=== PATIENT | male | born 1965 | race Caucasian/White ===

== ENCOUNTER 2016-07-15 10:22 | Emergency (ER) | payer OTHER ==
[~2016-07-15] VITALS: Ht 177.8 cm; Wt 85.0 kg
[2016-07-15 10:24] VITALS: BP 111/73; PULSE 122; RESP 20; TEMP 98.7; O2SAT 97
[2016-07-15 10:50] VITALS: BP 113/81; PULSE 110; RESP 16; O2SAT 95
[2016-07-15] MEDS ORDERED: ADDE30XR PO (10:50)
[2016-07-15] MEDS ORDERED: ESZO3TAB4 PO (10:50)
--- NOTE | 2016-07-15 10:59 | PD ---
HPI Chief Complaint: Allergic/Adverse Reaction Time Seen by Provider: 10:44 Travel History International Travel<30 days: No Contact w/Intl Traveler<30days: No Traveled to known affect area: No History of Present Illness HPI The 50-year-old man who presents emergent from complaining of pruritic rash. Symptoms started 2 days ago. He develop widespread hives. States overall he is felt poorly as well. He feels tightening in his arms and legs. He feels like his lip started getting swollen today. His never had anything similar. No history of atopy in the past. No new exposures. He has had some nausea and vomiting as well. No other complaints. History Past Medical History Medical History: Denies Significant Hx Influenza Vaccination: No Social History Alcohol Use: Yes (OCCASIONALLY) Tobacco Use: Yes (2-3 CIGS/DAY) Allergies-Medications (Allergen,Severity, Reaction): Coded Allergies: No Known Allergies (Unverified , 07/15/16) Reported Meds & Prescriptions Reported Meds & Active Scripts Active Reported Adderall Xr 24 HR (Amphetamine/Dextroamphetamine) 30 Mg Cap 30 Mg PO DAILY Once daily in the morning. Lunesta (Eszopiclone) 3 Mg Tab 3 Mg PO HS PRN Review of Systems Except as stated in HPI: all other systems reviewed are Neg Physical Exam Narrative GENERAL: Well-appearing 50-year-old man, no acute distress. SKIN: Widespread urticaria. Raised hives throughout the trunk and extremities. Some pruritus. No appreciable edema or swelling other he states his extremities feel swollen. No rash inside the mouth. HEAD: Atraumatic. Normocephalic. CARDIOVASCULAR: Regular rate and rhythm. No murmur appreciated. RESPIRATORY: No accessory muscle use. Clear to auscultation. Breath sounds equal bilaterally. GASTROINTESTINAL: Abdomen soft, non-tender, nondistended. Hepatic and splenic margins not palpable. MUSCULOSKELETAL: No obvious deformities. No edema. NEUROLOGICAL: Awake and alert. No obvious cranial nerve deficits. Motor grossly within normal limits. Normal speech. Data Data Last Documented VS Vital Signs Date Time Temp Pulse Resp B/P Pulse Ox O2 Delivery O2 Flow Rate FiO2 07/15/16 10:50 110 16 113/81 95 Room Air 07/15/16 10:24 98.7 Orders Complete Blood Count With Diff (07/15/16 10:55) Comprehensive Metabolic Panel (07/15/16 10:55) Creatine Kinase (Cpk) (07/15/16 10:55) Iv Access Insert/Monitor (07/15/16 10:55) Sodium Chlor 0.9% 1000 Ml Inj (Ns 1000 M (07/15/16 11:00) Sodium Chlor 0.9% 1000 Ml Inj (Ns 1000 M (07/15/16 11:00) Methylprednisolone So Succ Inj (Solumedr (07/15/16 11:00) Diphenhydramine Inj (Benadryl Inj) (07/15/16 11:00) Labs Laboratory Tests Test 07/15/16 10:57 White Blood Count 7.3 TH/MM3 Red Blood Count 4.92 MIL/MM3 Hemoglobin 16.1 GM/DL Hematocrit 46.4 % Mean Corpuscular Volume 94.2 FL Mean Corpuscular Hemoglobin 32.6 PG Mean Corpuscular Hemoglobin 34.6 % Concent Red Cell Distribution Width 13.7 % Platelet Count 231 TH/MM3 Mean Platelet Volume 7.5 FL Neutrophils (%) (Auto) 72.3 % Lymphocytes (%) (Auto) 22.1 % Monocytes (%) (Auto) 4.4 % Eosinophils (%) (Auto) 0.6 % Basophils (%) (Auto) 0.6 % Neutrophils # (Auto) 5.3 TH/MM3 Lymphocytes # (Auto) 1.6 TH/MM3 Monocytes # (Auto) 0.3 TH/MM3 Eosinophils # (Auto) 0.0 TH/MM3 Basophils # (Auto) 0.0 TH/MM3 CBC Comment DIFF FINAL Differential Comment Sodium Level 134 MEQ/L Potassium Level 4.2 MEQ/L Chloride Level 98 MEQ/L Carbon Dioxide Level 28.6 MEQ/L Anion Gap 7 MEQ/L Blood Urea Nitrogen 21 MG/DL Creatinine 1.34 MG/DL Estimat Glomerular Filtration 57 ML/MIN Rate Random Glucose 117 MG/DL Calcium Level 8.5 MG/DL Total Bilirubin 0.9 MG/DL Aspartate Amino Transf 21 U/L (AST/SGOT) Alanine Aminotransferase 26 U/L (ALT/SGPT) Alkaline Phosphatase 57 U/L Total Creatine Kinase 47 U/L Total Protein 7.2 GM/DL Albumin 3.2 GM/DL MDM Medical Decision Making Medical Screen Exam Complete: Yes Emergency Medical Condition: Yes Interpretation(s) LABS: CBC is unremarkable. CMP remarkable for mildly elevated BUN and creatinine. Total CK is normal. Differential Diagnosis Urticaria, allergic reaction, vasculitis, infection, other Narrative Course Medical decision making INITIAL cause a 50-year-old man who presents to the emergency department complaining of some generalized illness with widespread urticaria and hives. We 'll give fluids and steroids, antihistamines, we'll check basic labs was given the multiple associated complaints. Diagnosis Primary Impression: Urticaria Additional Instructions: Take steroids as prescribed. Take loratadine as prescribed. Follow-up with your primary doctor in the next 2-4 days. Return to emergency department for any new or worsening symptoms. Med/Other Pt SpecificInfo: Prescription(s) given Scripts Loratadine 10 Mg Tab10 Mg PO DAILY 7 Days Ref 0 Prov:Niko Rosa MD 07/15/16 Prednisone (Deltasone)20 Mg Tab40 Mg PO DAILY 3 Days Prov:Niko Rosa MD 07/15/16 Disposition: 01 DISCHARGE HOME Condition: Stable Niko Rosa MD Jul 15, 2016 10:59
[2016-07-15] MEDS ORDERED: methylPREDNISolone SOD SUCC 125 MG/2 ML VIAL IV PUSH ONE (11:00)
[2016-07-15] MEDS ORDERED: SODIUM CHLOR 0.9% 1000 ML INJ 1,000 ML IV ONE ×2 (11:00)
[2016-07-15] MEDS ORDERED: diphenhydrAMINE HCL 50 MG/ML VIAL IV PUSH ONE (11:00)
[2016-07-15 11:07] LABS: AUTOMATED NEUTROPHIL # 5.3 TH/MM3 (1.8-7.7); BASOPHIL % 0.6 % (0.0-2.0); EOSINOPHIL % 0.6 % (0.0-4.0); HEMATOCRIT 46.4 % (39.0-51.0); HEMO FLAGS DIFF FINAL; LYMPH % 22.1 % (9.0-44.0); LYMPHOCYTE # 1.6 TH/MM3 (1.0-4.8); MEAN CELL VOLUME 94.2 FL (80.0-100.0); MEAN CORPUSCULAR HEMOGLOBIN 32.6 PG (27.0-34.0); MEAN CORPUSCULAR HGB CONC 34.6 % (32.0-36.0); MONO % 4.4 % (0.0-8.0); NEUT % 72.3 % (16.0-70.0); PLATELET COUNT 231 TH/MM3 (150-450); RED BLOOD COUNT 4.92 MIL/MM3 (4.50-5.90); RED CELL DISTRIBUTION WIDTH 13.7 % (11.6-17.2); WHITE BLOOD COUNT 7.3 TH/MM3 (4.0-11.0)
[2016-07-15 11:34] LABS: ANION GAP 7 MEQ/L (5-15); AST (GOT) 21 U/L (15-37); BICARBONATE 28.6 MEQ/L (21.0-32.0); BLOOD UREA NITROGEN 21 MG/DL (7-18); CHLORIDE 98 MEQ/L (98-107); GLOMERULAR FILTRATION RATE 57 ML/MIN (>89); POTASSIUM 4.2 MEQ/L (3.5-5.1); SODIUM (NA) 134 MEQ/L (136-145)
[2016-07-15 11:37] LABS: ALKALINE PHOSPHATASE 57 U/L (45-117); ALT (GPT) 26 U/L (12-78); TOTAL BILIRUBIN ADULT 0.9 MG/DL (0.2-1.0)
[2016-07-15 11:41] LABS: CREATINE KINASE 47 U/L (39-308)
[2016-07-15] MEDS ORDERED: LORA10TA PO (11:46)
[2016-07-15] MEDS ORDERED: PRED-503 PO (11:46)
[2016-07-15 11:56] VITALS: BP 116/75; PULSE 110; RESP 16; O2SAT 95
== END 2016-07-15 12:47 | disposition home or self-care (01) ==
LOC: NEPC 10:22
DX: L50.9 Urticaria, unspecified (principal); Z72.0 Tobacco use
CPT/HCPCS: 80053; 82550; 85025; 96374; 96375; 99283; J1200; J2930; J7030

== ENCOUNTER 2016-10-10 10:27 | Observation (INO) | payer OTHER ==
[~2016-10-10] VITALS: Ht 177.8 cm; Wt 87.0 kg
[~2016-10-10 10:27] MED LIST: ADDE30XR PO; ESZO3TAB4 PO; LORA10TA PO; PRED-503 PO
[2016-10-10 10:29] VITALS: BP 124/81; PULSE 73; RESP 14; TEMP 98.1; O2SAT 97
[2016-10-10] MEDS ORDERED: LORA-392 PO (10:49)
--- NOTE | 2016-10-10 10:54 | PD ---
HPI Chief Complaint: Chest Pain Time Seen by Provider: 10:49 Travel History International Travel<30 days: No Contact w/Intl Traveler<30days: No Traveled to known affect area: No History of Present Illness HPI Patient is a 50-year-old male presenting to him or chart for evaluation of right upper chest pain. Patient states the pain woke him up approximate 5 AM this morning, he reports being short of breath due to the chest pain, he states the pain radiates to his neck and underneath his right arm. Patient rates his pain a 7 out of 10 and describes a sore and aching. He denies any nausea, vomiting, headache, abdominal pain. Patient reports that it was hard to take a deep breath this morning so he used his roommate's albuterol inhaler approximately 20 minutes prior to arrival. Patient is also taken four 325 mg aspirins this morning. Patient denies any cardiac history, he reports history of anxiety, ADD, insomnia. Patient admits to marijuana use, tobacco use and daily alcohol use. PFS Past Medical History ADD: Yes Anxiety: Yes Insomnia: Yes Past Surgical History Genitourinary Surgery: Yes Other Surgery: Yes (knee and right shoulder) Social History Alcohol Use: Yes (OCCASIONALLY) Tobacco Use: Yes (2-3 CIGS/DAY) Substance Use: Yes (marijuana) Allergies-Medications (Allergen,Severity, Reaction): Coded Allergies: No Known Allergies (Unverified , 10/10/16) Reported Meds & Prescriptions Reported Meds & Active Scripts Active Reported Ativan (Lorazepam) 0.5 Mg Tab 0.5 Mg PO DAILY PRN Adderall Xr 24 HR (Amphetamine/Dextroamphetamine) 30 Mg Cap 30 Mg PO DAILY Once daily in the morning. Review of Systems Except as stated in HPI: all other systems reviewed are Neg General / Constitutional: No: Fever Eyes: No: Blurred Vision HENT: No: Headaches, Lightheadedness Cardiovascular: Positive: Chest Pain or Discomfort (right upper chest), No: Diaphoresis Respiratory: Positive: Shortness of Breath, No: Cough, Wheezing Gastrointestinal: No: Nausea, Vomiting, Abdominal Pain Musculoskeletal: Positive: Myalgias (right shoulder) Neurologic: No: Dizziness, Focal Abnormalities Physical Exam Narrative GENERAL: Well-developed, well-nourished, alert male. Appears uncomfortable, no acute distress. SKIN: Focused skin assessment warm/dry. HEAD: Atraumatic. Normocephalic. EYES: Pupils equal and round. No scleral icterus. No injection or drainage. ENT: No nasal bleeding or discharge. Mucous membranes pink and moist. NECK: Trachea midline. No JVD. CARDIOVASCULAR: Regular rate and rhythm. No murmur appreciated. RESPIRATORY: No accessory muscle use. Clear to auscultation. Breath sounds equal bilaterally. GASTROINTESTINAL: Abdomen soft, non-tender, nondistended. Hepatic and splenic margins not palpable. MUSCULOSKELETAL: No obvious deformities. No clubbing. No cyanosis. No edema. Pain is not reproducible on palpation to chest wall. NEUROLOGICAL: Awake and alert. No obvious cranial nerve deficits. Motor grossly within normal limits. Normal speech. PSYCHIATRIC: Appropriate mood and affect; insight and judgment normal. Data Data Last Documented VS Vital Signs Date Time Temp Pulse Resp B/P Pulse Ox O2 Delivery O2 Flow Rate FiO2 10/10/16 10:51 95 Room Air 10/10/16 10:51 2 10/10/16 10:29 98.1 73 14 124/81 Orders Electrocardiogram (10/10/16 10:47) Ckmb (Isoenzyme) Profile (10/10/16 10:47) Complete Blood Count With Diff (10/10/16 10:47) Comprehensive Metabolic Panel (10/10/16 10:47) Magnesium (Mg) (10/10/16 10:47) Prothrombin Time / Inr (Pt) (10/10/16 10:47) Act Partial Throm Time (Ptt) (10/10/16 10:47) Troponin I (10/10/16 10:47) Chest, Single Ap (10/10/16 10:47) Ecg Monitoring (10/10/16 10:47) Bilateral Bp Monitoring (10/10/16 10:47) Iv Access Insert/Monitor (10/10/16 10:47) Oximetry (10/10/16 10:47) Oxygen Administration (10/10/16 10:47) Sodium Chloride 0.9% Flush (Ns Flush) (10/10/16 11:00) Nitroglycerin Sl (Nitrostat Sl) (10/10/16 11:00) Drug Screen, Random Urine (10/10/16 10:47) CKMB (10/10/16 11:00) CKMB% (10/10/16 11:00) Admit Order (Ed Use Only) (10/10/16 12:56) Labs Laboratory Tests Test 10/10/16 10/10/16 11:00 12:14 White Blood Count 10.3 TH/MM3 Red Blood Count 4.51 MIL/MM3 Hemoglobin 14.6 GM/DL Hematocrit 43.7 % Mean Corpuscular Volume 96.9 FL Mean Corpuscular Hemoglobin 32.3 PG Mean Corpuscular Hemoglobin 33.3 % Concent Red Cell Distribution Width 13.8 % Platelet Count 292 TH/MM3 Mean Platelet Volume 7.7 FL Neutrophils (%) (Auto) 62.0 % Lymphocytes (%) (Auto) 27.8 % Monocytes (%) (Auto) 6.5 % Eosinophils (%) (Auto) 2.8 % Basophils (%) (Auto) 0.9 % Neutrophils # (Auto) 6.4 TH/MM3 Lymphocytes # (Auto) 2.9 TH/MM3 Monocytes # (Auto) 0.7 TH/MM3 Eosinophils # (Auto) 0.3 TH/MM3 Basophils # (Auto) 0.1 TH/MM3 CBC Comment DIFF FINAL Differential Comment Prothrombin Time 9.5 SEC Prothromb Time International 0.9 RATIO Ratio Activated Partial 26.8 SEC Thromboplast Time Sodium Level 138 MEQ/L Potassium Level 4.7 MEQ/L Chloride Level 103 MEQ/L Carbon Dioxide Level 26.2 MEQ/L Anion Gap 9 MEQ/L Blood Urea Nitrogen 15 MG/DL Creatinine 0.96 MG/DL Estimat Glomerular Filtration 83 ML/MIN Rate Random Glucose 104 MG/DL Calcium Level 9.2 MG/DL Magnesium Level 2.2 MG/DL Total Bilirubin 0.2 MG/DL Aspartate Amino Transf 35 U/L (AST/SGOT) Alanine Aminotransferase 37 U/L (ALT/SGPT) Alkaline Phosphatase 83 U/L Total Creatine Kinase 134 U/L Creatine Kinase MB LESS THAN 0.5 NG/ML Troponin I LESS THAN 0.02 NG/ML Total Protein 7.2 GM/DL Albumin 3.7 GM/DL Urine Opiates Screen NEG Urine Barbiturates Screen NEG Urine Amphetamines Screen NEG Urine Benzodiazepines Screen NEG Urine Cocaine Screen NEG Urine Cannabinoids Screen POS MDM Medical Decision Making Medical Screen Exam Complete: Yes Emergency Medical Condition: Yes Interpretation(s) Vital Signs Date Time Temp Pulse Resp B/P Pulse Ox O2 Delivery O2 Flow Rate FiO2 10/10/16 10:29 98.1 73 14 124/81 97 Differential Diagnosis Chest wall pain versus AMI versus pleurisy versus unstable angina versus anxiety versus musculoskeletal strain versus other Narrative Course Patient is a 50-year-old male presenting to the emergency room for evaluation of chest pain that started at approximately 5 AM this morning waking him up from sleep. Patient's vital signs are stable, EKG shows sinus rhythm, reviewed by my attending physician. IV access initiated, patient placed on telemetry monitoring and continuous pulse oximetry. Chest x-ray, labs ordered and pending. Nitroglycerin glycerin sublingual 2 ordered. Patient was observed sleeping, when aroused he stated that he continued to have the right chest pain. Labs reviewed and are unremarkable, urine tox screen is positive for marijuana Patient will be placed in chest pain center, he is agreeable to stay. Diagnosis Primary Impression: Chest pain Qualified Code: R07.9 - Chest pain, unspecified type Admitting Information Admitting Physician Requests: Observation Condition: Stable Akiko Milan NEIGHBORHOOD COORDINATOR Oct 10, 2016 10:54
[2016-10-10] MEDS ORDERED: SODIUM CHLORIDE 0.9% FLUSH 10 ML FLUSH IVF PRN (11:00)
[2016-10-10] MEDS: NITROGLYCERIN 0.4 MG SL 25 TABS/BTL SL SCH ×2 (11:05→11:17)
--- NOTE | 2016-10-10 11:08 | RADRPT ---
EXAM DATE/TIME: 10/10/2016 10:48 [facility] COMPARISON: No previous studies available for comparison. INDICATIONS : Chest pain. Short of breath MEDICAL HISTORY : None. SURGICAL HISTORY : None. ENCOUNTER: Initial ACUITY: 1 day PAIN SCORE: 8/10 LOCATION: Right chest FINDINGS: A single view of the chest demonstrates the lungs to be symmetrically aerated without evidence of mas s, infiltrate or effusion. The cardiomediastinal contours are unremarkable. Osseous structures are intact. CONCLUSION: 1. No acute cardiopulmonary disease. Zeus Mirza MD on October 10, 2016 at 11:06 Board Certified Radiologist. This report was verified electronically.
[2016-10-10 11:40] LABS: AUTOMATED NEUTROPHIL # 6.4 TH/MM3 (1.8-7.7); BASOPHIL # 0.1 TH/MM3 (0-0.2); BASOPHIL % 0.9 % (0.0-2.0); EOSINOPHIL # 0.3 TH/MM3 (0-0.4); EOSINOPHIL % 2.8 % (0.0-4.0); HEMATOCRIT 43.7 % (39.0-51.0); HEMO FLAGS DIFF FINAL; LYMPH % 27.8 % (9.0-44.0); LYMPHOCYTE # 2.9 TH/MM3 (1.0-4.8); MEAN CELL VOLUME 96.9 FL (80.0-100.0); MEAN CORPUSCULAR HEMOGLOBIN 32.3 PG (27.0-34.0); MEAN CORPUSCULAR HGB CONC 33.3 % (32.0-36.0); MONO % 6.5 % (0.0-8.0); PLATELET COUNT 292 TH/MM3 (150-450); RED BLOOD COUNT 4.51 MIL/MM3 (4.50-5.90); RED CELL DISTRIBUTION WIDTH 13.8 % (11.6-17.2); WHITE BLOOD COUNT 10.3 TH/MM3 (4.0-11.0)
[2016-10-10 11:41] LABS: APTT (PATIENT) 26.8 SEC (24.3-30.1); INTERNATIONAL NORMALIZED RATIO 0.9 RATIO; PROTHROMBIN TIME - PATIENT 9.5 SEC (9.8-11.6)
[2016-10-10 11:54] LABS: ANION GAP 9 MEQ/L (5-15); AST (GOT) 35 U/L (15-37); BICARBONATE 26.2 MEQ/L (21.0-32.0); BLOOD UREA NITROGEN 15 MG/DL (7-18); CHLORIDE 103 MEQ/L (98-107); GLOMERULAR FILTRATION RATE 83 ML/MIN (>89); MAGNESIUM 2.2 MG/DL (1.5-2.5); SODIUM (NA) 138 MEQ/L (136-145)
[2016-10-10 11:55] LABS: POTASSIUM 4.7 MEQ/L (3.5-5.1)
[2016-10-10 11:59] LABS: ALKALINE PHOSPHATASE 83 U/L (45-117); ALT (GPT) 37 U/L (12-78); CREATINE KINASE 134 U/L (39-308); TOTAL BILIRUBIN ADULT 0.2 MG/DL (0.2-1.0)
[2016-10-10 12:12] LABS: CKMB LESS THAN 0.5 NG/ML (0.5-3.6)
[2016-10-10 12:41] LABS: AMPHETAMINE, URINE NEG (NEG); BARBITURATES, URINE NEG (NEG); COCAINE, URINE NEG (NEG)
[2016-10-10 12:57] VITALS: BP 107/79; PULSE 68; RESP 16; O2SAT 99
[2016-10-10] MEDS ORDERED: PANTOPRAZOLE SOD 40 MG DELAYED RELEASE TAB PO SCH (13:30)
[2016-10-10] MEDS ORDERED: SODIUM CHLORIDE 0.9% FLUSH 5 ML FLUSH IVF PRN (13:30)
[2016-10-10] MEDS ORDERED: ONDANSETRON HCL 4 MG/2 ML VIAL IV PRN (13:30)
[2016-10-10] MEDS ORDERED: ACETAMINOPHEN 500 MG CPLT PO PRN (13:30)
[2016-10-10] MEDS ORDERED: ACETAMINOPHEN/HYDROcodone 325 MG/7.5 MG TAB PO PRN (13:30)
--- NOTE | 2016-10-10 13:35 | HHI.HP ---
[facility] Primary Care Physician Jared Harman M.D. Chief Complaint Right chest pain History of Present Illness This is a 50-year-old male that presents to ED via private vehicle complaining of waking up at 0500 this morning with a right-sided chest discomfort. It was a tightness. He also short of breath. He used inhaler which helped the shortness of breath however the tightness persisted. The tightness lasted at a higher severity for about 3 hours but is continuing to be present at a lower level. He states that even the slightest bit of movement worsens the symptoms. He cannot recall anything that may have caused his symptoms. Denies nausea and diaphoresis. Denies recent illnesses. 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 Denies hypertension, hyperlipidemia, diabetes, CAD, and family history of CAD. Review of Systems General: Patient denies fevers, chills recent, and recent travel HEENT: Patient denies headache, sore throat, difficulty swallowing. Cardiovascular: Has the chest discomfort as mentioned above. Denies sensation of heart beating rapidly or irregularly. No syncope. Respiratory: Patient was short of breath however using an albuterol inhaler helped. Denies inspirational chest discomfort. Denies coughing wheezing or hemoptysis. GI: Patient denies nausea, vomiting, diarrhea, abdominal pain, bloody stools. Musculoskeletal: Patient denies joint pain or edema. Denies calf pain or edema. Neurovascular: Patient denies numbness, tingling, weakness in extremities. Denies headache. Endocrine: Denies polyuria and polydipsia. Hematologic: Denies easy bruising. Skin: Denies rash or itching. Past Family Social History Allergies: Coded Allergies: No Known Allergies (Unverified , 10/10/16) Past Medical History ADHD, anxiety, insomnia, tobacco abuse. Denies hypertension, hyperlipidemia, diabetes, and CAD. Past Surgical History Right rotator cuff tear repair. Reported Medications Reported Meds & Active Scripts Active Reported Ativan (Lorazepam) 0.5 Mg Tab 0.5 Mg PO DAILY PRN Adderall Xr 24 HR (Amphetamine/Dextroamphetamine) 30 Mg Cap 30 Mg PO DAILY Once daily in the morning. Active Ordered Medications Current Medications Medications (Trade) Dose Ordered Sig/Ankit Route Start Time Stop Time Status Last Admin (NS Flush) 2 ml UNSCH PRN IVF 10/10/16 11:00 Family History Denies family history of CAD. Social History Smokes one cigarette a day for last 2 months but prior that he very rarely had a cigarette. Has on average 3-4 beers a day. Smokes marijuana about 2 times a week. He is currently a full-time student and lives with roommates. Physical Exam Vital Signs Vital Signs Date Time Temp Pulse Resp B/P Pulse Ox O2 Delivery O2 Flow Rate FiO2 10/10/16 12:57 68 16 107/79 99 Nasal Cannula 2 10/10/16 10:51 95 Room Air 10/10/16 10:51 Nasal Cannula 2 10/10/16 10:29 98.1 73 14 124/81 97 Physical Exam GENERAL: This is a well-nourished, well-developed patient, in no apparent distress. Patient speaks in clear complete sentences. Patient is pleasant. HEENT: Head is atraumatic and normocephalic. Neck is supple without lymphadenopathy and trachea is midline. No JVD or carotid bruits. CARDIOVASCULAR: Regular rate and rhythm without murmurs, gallops, or rubs. RESPIRATORY: Able to exacerbate the right-sided chest pain with even slight movement of the torso. Hurts to try to bend forward, turn to either direction, move the right arm, or press on the upper chest wall. Clear to auscultation. Breath sounds equal bilaterally. No wheezes, rales, or rhonchi. No use of accessory muscles. GASTROINTESTINAL: Abdomen is nontender, nondistended. Abdomen soft. No obvious pulsatile mass or bruit. No CVA tenderness. Strong femoral pulses bilaterally. Normal bowel sounds in all quadrants. MUSCULOSKELETAL: Patient is moving upper and lower extremities freely. No calf tenderness or edema, no Homans sign. Strong pulses in upper and lower extremities. NEUROLOGICAL: Patient is alert and oriented. Cranial nerves 2-12 are grossly intact. No focal deficits and speech is clear. SKIN: No rash and turgor is normal. Laboratory Laboratory Tests Test 10/10/16 10/10/16 11:00 12:14 White Blood Count 10.3 Red Blood Count 4.51 Hemoglobin 14.6 Hematocrit 43.7 Mean Corpuscular Volume 96.9 Mean Corpuscular Hemoglobin 32.3 Mean Corpuscular Hemoglobin 33.3 Concent Red Cell Distribution Width 13.8 Platelet Count 292 Mean Platelet Volume 7.7 Neutrophils (%) (Auto) 62.0 Lymphocytes (%) (Auto) 27.8 Monocytes (%) (Auto) 6.5 Eosinophils (%) (Auto) 2.8 Basophils (%) (Auto) 0.9 Neutrophils # (Auto) 6.4 Lymphocytes # (Auto) 2.9 Monocytes # (Auto) 0.7 Eosinophils # (Auto) 0.3 Basophils # (Auto) 0.1 CBC Comment DIFF FINAL Differential Comment Prothrombin Time 9.5 Prothromb Time International 0.9 Ratio Activated Partial 26.8 Thromboplast Time Sodium Level 138 Potassium Level 4.7 Chloride Level 103 Carbon Dioxide Level 26.2 Anion Gap 9 Blood Urea Nitrogen 15 Creatinine 0.96 Estimat Glomerular Filtration 83 Rate Random Glucose 104 Calcium Level 9.2 Magnesium Level 2.2 Total Bilirubin 0.2 Aspartate Amino Transf 35 (AST/SGOT) Alanine Aminotransferase 37 (ALT/SGPT) Alkaline Phosphatase 83 Total Creatine Kinase 134 Creatine Kinase MB LESS THAN 0.5 Troponin I LESS THAN 0.02 Total Protein 7.2 Albumin 3.7 Urine Opiates Screen NEG Urine Barbiturates Screen NEG Urine Amphetamines Screen NEG Urine Benzodiazepines Screen NEG Urine Cocaine Screen NEG Urine Cannabinoids Screen POS Result Diagram: 10/10/16 1100 10/10/16 1100 Imaging Last Impressions Chest X-Ray 10/10/16 1047 Signed Impressions: Service Date/Time: Monday, October 10, 2016 10:48 - CONCLUSION: 1. No acute cardiopulmonary disease. Zeus Mirza MD Course Initial EKG is sinus rhythm without significant ST segment depressions or elevation. Assessment and Plan Assessment and Plan * Atypical chest pain: Patient will continue to have serial cardiac enzymes and EKGs for ruling out purposes. He will be seen by Dr. Yu of cardiology in the chest pain center and at that time we'll determine further treatment. * Tobacco abuse: Patient has been counseled on the importance of smoking cessation. * ADHD: Patient may resume his medication at discharge at the direction of his primary care physician prescribing it. Patient is stable at this time. He is agreeable to this plan. Mazin Echeverria Oct 10, 2016 13:34
[2016-10-10 14:37] LABS: CREATINE KINASE 96 U/L (39-308)
[2016-10-10 14:53] VITALS: BP 115/82
[2016-10-10 15:20] VITALS: BP 116/78; PULSE 64; RESP 18; TEMP 97.8; O2SAT 99
--- NOTE | 2016-10-10 15:42 | HHI.DCPOC ---
Discharge Care Plan Diagnosis: (1) Chest pain, atypical (2) Tobacco abuse Goals to Promote Your Health * To prevent worsening of your condition and complications * To maintain your health at the optimal level Directions to Meet Your Goals Take your medications as prescribed Follow your dietary instruction Follow activity as directed Keep your appointments as scheduled Take your immunizations and boosters as scheduled If your symptoms worsen call your PCP, if no PCP go to Urgent Care Center or Emergency Room Smoking is Dangerous to Your Health. Avoid second hand smoke Call the 24-hour hour crisis hotline for domestic abuse at Mazin Echeverria Oct 10, 2016 15:42
[2016-10-10] MEDS ORDERED: NAPR500 PO (15:46)
[2016-10-10 15:52] VITALS: PULSE 65
--- NOTE | 2016-10-10 16:07 | EKG ---
Date Performed: 10/10/2016 Time Performed: 10:45:41 PTAGE: 50 years EKG: Sinus rhythm NORMAL ECG NO PREVIOUS TRACING DOCTOR: Indigo Yu Interpretating Date/Time 10/10/2016 16:05:40
[2016-10-10] MEDS ORDERED: SODIUM CHLORIDE 0.9% FLUSH 5 ML FLUSH IVF SCH (21:00)
[2016-10-11] MEDS ORDERED: ASPIRIN 325 MG TAB PO SCH (09:00)
--- NOTE | 2016-10-12 13:47 | EKG ---
Date Performed: 10/10/2016 Time Performed: 14:08:34 PTAGE: 50 years EKG: Sinus rhythm NORMAL ECG PREVIOUS TRACING : 10/10/2016 10.45 Since previous tracing, no significant change noted DOCTOR: Zeus Oreilly Interpretating Date/Time 10/12/2016 13:46:48
== END 2016-10-10 16:20 | disposition home or self-care (01) ==
LOC: NEPA 10:27 → NEDA 12:57 → NEPHCDU 15:05 → UNDODISOB 16:20
PROVIDERS: ADMIT Internal Medicine Interventional Cardiology; ATTEND Internal Medicine Interventional Cardiology
DX: R07.89 Other chest pain (principal); F90.9 Attention-deficit hyperactivity disorder, unspecified type; F41.9 Anxiety disorder, unspecified; F17.210 Nicotine dependence, cigarettes, uncomplicated
CPT/HCPCS: 71010; 80053; 80307; 82550; 82552; 83735; 84484; 85025; 85610; 85730; 93005; 99285; G0378

== ENCOUNTER 2017-02-20 18:29 | Emergency (ER) | payer OTHER ==
[~2017-02-20] VITALS: Ht 177.8 cm; Wt 80.0 kg
[~2017-02-20 18:29] MED LIST changes: -ESZO3TAB4 PO; +LORA-392 PO; -LORA10TA PO; +NAPR500 PO; -PRED-503 PO
[2017-02-20 18:32] VITALS: BP 165/101; PULSE 71; RESP 20
--- NOTE | 2017-02-20 18:46 | PD ---
Physical Exam Date Seen by Provider: Feb 20, 2017 Time Seen by Provider: 18:44 Narrative 51 YOWM C/O N/V SINCE THIS AFTERNOON. ? FOOD POISONING. VS REVIEWED AWAITING BED PLACEMENT Data Data Last Documented VS Vital Signs Date Time Temp Pulse Resp B/P Pulse Ox O2 Delivery O2 Flow Rate FiO2 02/20/17 18:32 71 20 165/101 MDM Supervised Visit with VERITO: Bentley Adams Feb 20, 2017 18:46
[2017-02-20] MEDS ORDERED: ONDANSETRON ODT 4 MG TAB PO ONE (19:00)
== END 2017-02-20 20:00 | disposition left against medical advice (07) ==
LOC: NED 18:29
DX: R11.2 Nausea with vomiting, unspecified (principal)
CPT/HCPCS: 99281

== ENCOUNTER → 2017-05-04 | Outpatient (CLI) | payer OTHER ==
[~2017-05-04] MED LIST changes: +AMBI10TA PO; +ASPI81CH6 CHEW; +COMMODE 3-IN-11 MIS; +CPMMACHINE; +CYCL10TA PO; +ENOX40P SQ; +HYDR-3288 PO; +WALKER WHEELS/F1 MIS
== END ==
LOC: CPRE 09:05
PROVIDERS: ATTEND Orthopaedic Surgery Sports Medicine
DX: Z00.00 Encounter for general adult medical examination without abnormal findings (principal)

== ENCOUNTER 2017-05-16 13:56 | Inpatient (IN) | payer OTHER ==
[~2017-05-16] VITALS: Ht 177.8 cm; Wt 81.5 kg
[~2017-05-16 13:56] MED LIST changes: -ASPI81CH6 CHEW; -COMMODE 3-IN-11 MIS; -CPMMACHINE; -CYCL10TA PO; -ENOX40P SQ; -HYDR-3288 PO; -NAPR500 PO; -WALKER WHEELS/F1 MIS
[2017-05-16] MEDS ORDERED: CYCL10TA PO (14:44)
[2017-05-16] MEDS ORDERED: SODIUM CHLORID 0.9% 500 ML IV PRN (15:00)
[2017-05-16] MEDS ORDERED: TRANEXAMIC ACID IV SCH (15:00)
[2017-05-16] MEDS ORDERED: CHLORHEXIDINE GLUCONATE 2 % 1 PACK (2 CLOTHS) TOPICAL PRN (15:00)
[2017-05-16] MEDS ORDERED: POVIDONE IODINE 5% (ANTISEPSIS KIT) 4 APPLICATIONS EACH NARE PRN (15:00)
[2017-05-16] MEDS ORDERED: METOPROLOL TARTRATE 25 MG TAB PO PRN (15:00)
[2017-05-16] MEDS ORDERED: VANCOMYCIN 1000 MG/NS 250 ML (for <70 kg) IV SCH ×2 (15:00)
[2017-05-16] MEDS ORDERED: TRANEXAMIC PERI-ARTICULAR 3,000 MG/NS 100 ML P-ARTICULR SCH ×2 (15:00)
[2017-05-16] MEDS ORDERED: ROPIVACAINE PERI-ARTICULAR INJECTION. P-ARTICULR SCH ×5 (15:00)
[2017-05-16] MEDS ORDERED: DEXAMETHASONE SOD PHOS 20 MG/5 ML VIAL IV SCH (15:00)
[2017-05-16] MEDS ORDERED: POVIDONE IODINE 7.5% SCRUB 118 ML BOTTLE TOPICAL SCH (15:00)
[2017-05-16] MEDS ORDERED: ceFAZolin 2 GM PREMIX 50 ML IV SCH (15:00)
[2017-05-16] MEDS ORDERED: SODIUM CHLORIDE 0.9% IV SCH (15:00)
[2017-05-16] MEDS ORDERED: CHLORHEXIDINE GLUCONATE 4% SOLN 120 ML BTL TOPICAL SCH (15:00)
[2017-05-16] MEDS ORDERED: LACTATED RINGER'S 1000 ML IV PRN (15:00)
[2017-05-16] MEDS ORDERED: BUPIVACAINE HCL PF 0.5% 30 ML VIAL ONE (15:25)
[2017-05-16] MEDS ORDERED: GENTAMICIN SULFATE 80 MG/2 ML VIAL ONE (16:10)
[2017-05-16] MEDS ORDERED: diphenhydrAMINE HCL 50 MG/ML VIAL IV PUSH PRN (16:30)
[2017-05-16] MEDS ORDERED: ENOX40P SQ (16:30)
[2017-05-16] MEDS ORDERED: SODIUM CHLORIDE 0.9% FLUSH 5 ML FLUSH IVF PRN (16:30)
[2017-05-16] MEDS ORDERED: BISACODYL 10 MG SUPP RECTAL PRN (16:30)
[2017-05-16] MEDS ORDERED: HYDR-3288 PO (16:30)
[2017-05-16] MEDS ORDERED: LORazepam 0.5 MG TAB PO PRN (16:30)
[2017-05-16] MEDS ORDERED: ONDANSETRON HCL 4 MG/2 ML VIAL IVP PRN (16:30)
[2017-05-16] MEDS ORDERED: Post-op Orders (for Pharmacy) MISC XX ONE (16:30)
[2017-05-16] MEDS ORDERED: ACETAMINOPHEN/HYDROcodone 325 MG/7.5 MG TAB PO PRN (16:30)
[2017-05-16] MEDS ORDERED: ZOLPIDEM TARTRATE 5 MG TAB PO PRN (16:30)
[2017-05-16] MEDS ORDERED: ASPI81CH6 CHEW (16:31)
[2017-05-16] MEDS: SODIUM CHLOR 0.9% 1000 ML INJ 1,000 ML IV SCH ×3 (16:55→20:53)
[2017-05-16] MEDS ORDERED: ENOXAPARIN SODIUM 40 MG/0.4 ML SYRINGE SQ SCH (17:00)
[2017-05-16] MEDS ORDERED: *MEPERIDINE 25 MG INJ VIAL PERIprocedural Use ONLY ONE (18:32)
[2017-05-16] MEDS ORDERED: DO NOT ADM ANY ANTICOAGULANT DRUGS PRN (18:33)
[2017-05-16] MEDS ORDERED: *morphine SULFATE 8 MG/ML PERIprocedure ONLY ONE (19:18)
--- NOTE | 2017-05-16 19:44 | RADRPT ---
EXAM DATE/TIME: 05/16/2017 19:13 [facility] COMPARISON: No previous studies available for comparison. INDICATIONS : Post op right knee surgery. MEDICAL HISTORY : None. SURGICAL HISTORY : None. ENCOUNTER: Initial ACUITY: 1 day PAIN SCORE: 7/10 LOCATION: Right knee. FINDINGS: 2 views of the knee show a total knee prosthesis in good position. No fracture or dislocation is obse rved. Soft tissue swelling is noted. Air and fluid noted within the joint. CONCLUSION: Total knee prosthesis in good position. Louis Serrato Jr., MD on May 16, 2017 at 19:42 Board Certified Radiologist. This report was verified electronically.
[2017-05-16 20:15] VITALS: BP 136/89; PULSE 79; RESP 18; TEMP 96.7; O2SAT 97
[2017-05-16] MEDS ORDERED: SODIUM CHLORIDE 0.9% FLUSH 5 ML FLUSH IVF SCH (21:00)
[2017-05-16] MEDS: ACETAMINOPHEN/HYDROcodone 325 MG/7.5 MG TAB PO PRN (21:02)
[2017-05-16] MEDS: MORPHINE SULFATE 4 MG/ML INJ IV PUSH PRN (22:47)
[2017-05-16 23:07] VITALS: BP 136/86; PULSE 83; RESP 18; TEMP 96.7; O2SAT 96
--- NOTE | 2017-05-17 00:13 | MP ---
cc: LINO ESPINOZA DATE OF SURGERY 05/16/17 PREOPERATIVE DIAGNOSIS Right knee osteoarthritis. POSTOPERATIVE DIAGNOSES Right knee osteoarthritis. PROCEDURE Right total knee arthroplasty. SURGEON Dr. Lino Espinoza. LAY OUT FORMER AIDA Gutierrez. ANESTHESIA General with a femoral nerve block. ESTIMATED BLOOD LOSS 400 cc. TOURNIQUET TIME 44 minutes at 250 mmHg. COMPLICATIONS None. IMPLANTS USED DePuy Attune size 7, posterior stabilized femoral component, size 7 rotating platform tibia baseplate, size 5 mm polyethylene tibial insert, size 38 patella. JUSTIFICATION This patient is a 51-year-old male with history of severe osteoarthritis involving the right knee. He has severe disabling pain with standing, walking, ambulation, weightbear activities and even severe pain at rest. He has failed greater than three months of conservative treatment to include medications, physical therapy, injections, ambulatory assisted aids, home exercise program, activity modification and prior arthroscopic surgery. He does have a deficient ACL knee and evidence of a prior meniscectomy many years ago. X-rays of the right knee reveal [id number] joint space narrowing medial compartment, subchondral sclerosis, subchondral cyst, osteophyte formation with varus deformity. The patient counseled as to the risks, benefits and alternatives to a total knee arthroplasty. The risks were discussed which include but limited to anesthesia, bleeding, infection, damage to nerves, blood vessels, pain, stiffness, failure of hardware, blood clots, pulmonary embolism and even . The patient favored the benefits over the risks and did wish to proceed with surgery. PROCEDURE IN DETAIL A written consent was obtained. The patient identified by name, taken to the operating room, placed supine on the operating room table. General anesthesia was administered as well as 2 grams of IV Ancef and 1 gram of IV vancomycin. He had a femoral nerve block administered through the adductor canal. A well-padded tourniquet was placed in the right thigh. The right lower extremity prepped and draped using isopropyl alcohol, Hibiclens solution, Chloraprep solution. After time-out was performed an Esmarch bandage was used to exsanguinate the right lower extremity. The tourniquet inflated to 250 mmHg. A longitudinal incision was made over the anterior aspect of the right knee. A medial parapatellar arthrotomy was performed. The patella was everted. Patellar resection guide was used to resect 9 mm of patella. The size 38 mm guide was placed, three drill holes were placed and a 38 mm trial fit well. Attention was turned to the femur. An intramedullary guide darvin was placed and the distal femoral guide was set to remove 10 mm distal femur, 5 degrees off the anatomic valgus axis alignment. An oscillating saw was used to perform the distal femoral cut. Attention was turned to the tibia where an extramedullary tibial guide was set to remove 5 mm of the lowest portion of the medial tibial plateau. The tibia guide was pinned in place and tibia cut was performed. A 5 mm spacer block showed full extension. Attention turned back to the femur where the AP sizing block measured size 7. The anterior reference 3-0 external rotation guide was used to pin a size [address] The anterior, posterior chamfer cuts were performed. A size 7 PCL box guide was pinned in place and the PCL was boxed in with an oscillating saw. The medial and lateral meniscus remnants were removed as well as bone and soft tissue debris from posterior portion of the knee. A size 7 tibia baseplate was pinned in place. The tibial was drilled and punched. Trial components were evaluated and the final components cemented in place. With the current components the leg could achieve full extension, 0 degrees of flexion 140, no evidence of tibial lift-off, varus-valgus, balance appeared appropriate, symmetric. The tourniquet was deflated. Bovie cautery was used for hemostasis. The surgical wound was thoroughly irrigated with sterile saline, pulse lavage, antibiotic impregnated solution. The arthrotomy incision was closed with a #1 Vicryl suture. The subcutaneous layer with 2-0 Vicryl suture. Skin was closed with Dermabond. Sterile dressing applied. The patient tolerated the procedure well. No intraoperative complications noted. Hugo Mendes, physician assistant program manager-certified, was present during the entire procedure to include patient positioning and the procedure itself. The medical necessity of physician assistant program manager was indicated in this case due to the complexity of the procedure. He assisted with appropriate manipulation of the leg and also retraction of muscle, tendon, bone, neurovascular structures. He assisted with preparation of bone and also implantation of the prosthetic replacement. MD VOLODYMYR Reddy/OJSY /6:11 PM /11:50 PM
[2017-05-17] MEDS: ACETAMINOPHEN/HYDROcodone 325 MG/7.5 MG TAB PO PRN ×4 (02:19→16:45)
[2017-05-17] MEDS: MORPHINE SULFATE 4 MG/ML INJ IV PUSH PRN ×2 (04:37→09:54)
[2017-05-17] MEDS: SODIUM CHLOR 0.9% 1000 ML INJ 1,000 ML IV SCH (04:41)
[2017-05-17 04:45] VITALS: BP 123/84; PULSE 82; RESP 18; TEMP 98; O2SAT 100
[2017-05-17 07:40] LABS: HEMATOCRIT 36.7 % (39.0-51.0); MEAN CELL VOLUME 96.1 FL (80.0-100.0); MEAN CORPUSCULAR HEMOGLOBIN 32.5 PG (27.0-34.0); MEAN CORPUSCULAR HGB CONC 33.9 % (32.0-36.0); PLATELET COUNT 249 TH/MM3 (150-450); RED BLOOD COUNT 3.82 MIL/MM3 (4.50-5.90); RED CELL DISTRIBUTION WIDTH 13.4 % (11.6-17.2); REVIEW FLAG FINAL; WHITE BLOOD COUNT 15.4 TH/MM3 (4.0-11.0)
[2017-05-17 08:00] VITALS: BP 135/89; PULSE 83; RESP 18; TEMP 98; O2SAT 96
[2017-05-17 08:01] LABS: BICARBONATE 24.9 MEQ/L (21.0-32.0); POTASSIUM 3.9 MEQ/L (3.5-5.1)
--- NOTE | 2017-05-17 08:13 | PD.ORT.PN ---
Subjective Post Op Day #: 1 Subjective Remarks pain under control. Objective Vitals Vital Signs Date Time Temp Pulse Resp B/P (MAP) Pulse Ox O2 Delivery O2 Flow Rate FiO2 05/17/17 04:45 98.0 82 18 123/84 (97) 100 05/16/17 23:07 96.7 83 18 136/86 (103) 96 05/16/17 21:48 Nasal Cannula 2.00 05/16/17 21:09 98 Nasal Cannula 2.00 05/16/17 20:15 96.7 79 18 136/89 (105) 97 05/16/17 19:40 98.0 82 18 125/83 (97) 98 Nasal Cannula 2 05/16/17 19:30 81 18 143/86 (105) 98 Nasal Cannula 2 05/16/17 19:15 78 18 145/89 (107) 96 Nasal Cannula 2 05/16/17 19:00 78 17 133/82 (99) 98 Nasal Cannula 3 05/16/17 18:45 69 15 120/80 (93) 96 Nasal Cannula 3 05/16/17 18:33 97.8 97 15 131/88 (102) 96 Nasal Cannula 3 05/16/17 14:34 98.1 78 16 105/75 (85) 97 I/O 05/16/17 05/16/17 05/16/17 05/17/17 05/17/17 05/17/17 07:00 15:00 23:00 07:00 15:00 23:00 Intake Total 1760 ml 1920 ml Output Total 1725 ml 2775 ml Balance 35 ml -855 ml Intake Oral 360 ml 720 ml IV Total 200 ml 1200 ml Other 1200 ml Output Urine Total 1625 ml 2775 ml Estimated Blood Loss 100 ml # Bowel Movements 0 0 Result Diagram: 05/17/1731 05/17/17630 Imaging Last 24 hours Impressions Knee X-Ray 05/16/17 162 Signed Impressions: Service Date/Time: Tuesday, May 16, 2017 19:13 - CONCLUSION: Total knee prosthesis in good position. Louis Serrato Jr., MD Objective Remarks in bed, nad incision no erythema, no drainage neg homans nvi Assessment & Plan Ortho Post Op Day #: 1 Problem List: Assessment and Plan s/p R TKA wbat daily dressing changes lovenox d/c planning with [facility] and pt - cleared today if does well with PT rx in chart f/up dr. dolan 2 weeks Timothy Mendes May 17, 2017 08:13
--- NOTE | 2017-05-17 08:15 | HHI.DCPOC ---
Discharge Care Plan Diagnosis: (1) Primary localized osteoarthrosis, lower leg Your Health Problems Are: Difficulty with ADL Goals to Promote Your Health * To prevent worsening of your condition and complications * To maintain your health at the optimal level Directions to Meet Your Goals Take your medications as prescribed Follow your dietary instruction Follow activity as directed Keep your appointments as scheduled Take your immunizations and boosters as scheduled If your symptoms worsen call your PCP, if no PCP go to Urgent Care Center or Emergency Room Smoking is Dangerous to Your Health. Avoid second hand smoke Call the 24-hour hour crisis hotline for domestic abuse at Timothy Mendes May 17, 2017 08:15
--- NOTE | 2017-05-17 08:16 | HHI.FF ---
Face to Face Verification Diagnosis: (1) Primary localized osteoarthrosis, lower leg Physical Therapy Gait training, Safety evaluation, Transfer training, bed to chair Knee: Total knee, Protocol: Right, Full weight bearing Right LE Weight Bearing: WB as tolerated Nursing RN: 3 days/week x 2 weeks Nursing: Taylor teaching, Dressing changes Dressing Changes: Daily dressing change I have seen patient Ulices Alexander on 05/17/17. My clinical findings support the need for the requested home health care services because: Limited ability to care for self High risk of falls I certify that my clinical findings support that this patient is homebound because: Post-op weakness Unsteady gait/balance Timothy Mendes May 17, 2017 08:16
[2017-05-17] MEDS ORDERED: COMMODE 3-IN-11 MIS (08:18)
[2017-05-17] MEDS ORDERED: WALKER WHEELS/F1 MIS (08:18)
[2017-05-17] MEDS ORDERED: CPMMACHINE (08:18)
[2017-05-17] MEDS ORDERED: DEXTROAMPHETAMINE/AMPHETAMINE XR 30 MG CAP PO SCH (09:00)
[2017-05-17 09:16] VITALS: O2SAT 97
[2017-05-17 12:00] VITALS: BP 138/87; PULSE 85; RESP 18; TEMP 97.3; O2SAT 95
[2017-05-17] MEDS ORDERED: ENOXAPARIN SODIUM 40 MG/0.4 ML SYRINGE SQ SCH (18:00)
[2017-05-17] MEDS ORDERED: MULTIVITAMINS/MINERALS THERAPEUTIC TAB PO SCH (21:00)
[2017-05-17] MEDS ORDERED: DOCUSATE SODIUM 100 MG CAP PO SCH (21:00)
--- NOTE | 2017-05-18 16:16 | MD ---
cc: LINO ESPINOZA M.D. ADMISSION DATE: 05/16/2017 DISCHARGE DATE: 05/17/2017 ADMISSION DIAGNOSIS Severe degenerative osteoarthritis right knee DISCHARGE DIAGNOSIS Severe degenerative osteoarthritis right knee HISTORY OF PRESENT ILLNESS Mr. Alexander is a 51-year-old male who has been a longstanding patient of Dr. Lino Espinoza and is currently under care for progressive and severe right knee pain. The patient states he has a long history regarding his right knee, dating back to high school where he had several injuries and multiple surgeries including removal of his medial meniscus. He states his knee has been giving him trouble ever since. He notes currently the pain is inhibiting his activities of daily living and his ability to ambulate, he has a severe constant aching sensation, aggravated weightbearing activities. He has no alleviating factors although in the past he has tried medications, bracing, physical therapy home exercise, arthroscopic surgeries, corticosteroid injections without relief of symptoms. He does have x-ray evidence of severe degenerative osteoarthritis of the right knee. While in the office the patient was counseled on diagnosis and treatment options, risks, benefits, indications were all discussed. The patient did elect proceed with surgical intervention to include a total knee arthroplasty right knee. PROCEDURE: Date of surgery 05/16/2017 right total knee arthroplasty. POSTOPERATIVE: Postop after surgery the patient did [facility] where he received appropriate medical management pain control, DVT prophylaxis as well as physical therapy. DISCHARGE: Once being discharged from the hospital the patient is cleared to go home where he will receive home health care and home physical therapy and when he is in stable condition. He may weight bear as tolerated. He has received daily dressing changes and has been instructed on proper wound care management. Patient has been provided prescriptions for pain control as well as DVT prophylaxis medications, he has also been provided a follow-up appointment approximately 2 weeks from date of surgery the patient asked appropriate questions which have been answered. The patient is cleared for discharge. MD VOLODYMYR Reddy/ellie /12:58 PM /4:10 PM
== END 2017-05-17 17:04 | disposition home health service (06) | DRG 470 ==
LOC: HSDI 13:56 → N06B 20:05
PROVIDERS: ADMIT Orthopaedic Surgery Sports Medicine; ATTEND Orthopaedic Surgery Sports Medicine
PROC: 3E0T3BZ Introduction of Anesthetic Agent into Peripheral Nerves and Plexi, Percutaneous Approach (ICD-10-PCS; 2017-05-16)
PROC: 0SRC0J9 Replacement of Right Knee Joint with Synthetic Substitute, Cemented, Open Approach (ICD-10-PCS; principal; 2017-05-16 16:26)
DX: M17.11 Unilateral primary osteoarthritis, right knee (principal)
CPT/HCPCS: 73560; 80048; 85027; 86850; 86900; 86901; 94150; J0690; J0735; J1580; J1650; J1885; J2175; J2270; J2795; J3370; J7030; J7050; J7120; L1830